=== PATIENT | male | born 1975 | race Caucasian/White ===

== ENCOUNTER 2021-04-01 16:40 | Emergency (ER) | payer BC ==
[2021-04-01 17:19] LABS: HEMOGLOBIN 14.7 gm/dl (14.0-17.5); RED BLOOD COUNT 5.22 M/UL (4.20-5.50); WHITE BLOOD COUNT 10.8 K/UL (4.5-11.0)
[2021-04-01 18:15] LABS: BUN/CREATININE RATIO 19 (0-10)
== END 2021-04-01 21:24 | disposition home or self-care (01) ==
LOC: ER1 16:40
PROVIDERS: Nurse Practitioner
DX: R55 Syncope and collapse (principal); E11.9 Type 2 diabetes mellitus without complications; I10 Essential (primary) hypertension; F17.210 Nicotine dependence, cigarettes, uncomplicated
CPT/HCPCS: 36415; 70450; 71045; 72125; 72128; 72131; 73020; 73060; 80048; 82550; 82553; 83874; 84484; 85025; 93005; 96374; 96375; 96376; 99284; J1885; J2270; J2405; Q9967